=== PATIENT | female | born 1960 | race Caucasian/White ===

== ENCOUNTER 2020-01-20 10:33 | Emergency (ER) | payer OTHER ==
[~2020-01-20] VITALS: Ht 152.4 cm; Wt 61.2 kg
[2020-01-20] MEDS ORDERED: SYNTHROID88 MCG (10:48)
[2020-01-20] MEDS ORDERED: LIPITOR40 M1 PO (10:49)
== END 2020-01-20 12:37 | disposition home or self-care (01) ==
LOC: ER 10:33
DX: L02.212 Cutaneous abscess of back [any part, except buttock and flank] (principal)